=== PATIENT | female | born 1995 | race American Indian/Alaskan Native ===

== ENCOUNTER 2017-06-03 12:40 | Emergency (ER) | payer MEDICAID ==
[2017-06-03 12:49] VITALS: BP 127/89
[2017-06-03] MEDS ORDERED: TRIPLE ANTIBIOTIC TP ONE (14:43)
[2017-06-03] MEDS ORDERED: MOTRIN PO ONE (14:43)
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
== END 2017-06-03 15:28 | disposition home or self-care (01) ==
LOC: ED 12:40
DX: S90.811A Abrasion, right foot, initial encounter (principal); X58.XXXA Exposure to other specified factors, initial encounter; Y93.89 Activity, other specified; Y99.8 Other external cause status; Y92.89 Other specified places as the place of occurrence of the external cause
CPT/HCPCS: 99283; A6250